=== PATIENT | female | born 2000 | race Caucasian/White ===

== ENCOUNTER → 2024-02-28 | Outpatient (CLI) | payer BC, SELFPAY ==
[2024-03-01 07:06] LABS: PROGESTERONE 11.8 ng/mL (.)
== END | disposition home or self-care (01) ==
PROVIDERS: Visit Provider Family Medicine
DX: E28.8 Other ovarian dysfunction (principal); N92.6 Irregular menstruation, unspecified
CPT/HCPCS: 84144